=== PATIENT | female | born 1985 | race Two or more races ===

== ENCOUNTER 2021-08-17 11:03 | Emergency (ER) | payer OTHER ==
[~2021-08-17] VITALS: Ht 157.5 cm; Wt 77.1 kg
[2021-08-17] MEDS ORDERED: PROAIR HFA8.5 GM IH (11:14)
[2021-08-17] MEDS ORDERED: FLOVENT HFA12 GM IH (11:14)
[2021-08-17] MEDS ORDERED: ESCITALOPRAM OX20 MG PO (11:14)
[2021-08-17] MEDS ORDERED: KETO10TA2 PO (13:16)
== END 2021-08-17 13:55 | disposition home or self-care (01) ==
LOC: ER 11:03
DX: S52.572A Other intraarticular fracture of lower end of left radius, initial encounter for closed fracture (principal); W20.8XXA Other cause of strike by thrown, projected or falling object, initial encounter; Y93.89 Activity, other specified; Y92.832 Beach as the place of occurrence of the external cause